=== PATIENT | male | born 1985 | race Caucasian/White ===

== ENCOUNTER → 2018-06-09 | Outpatient (CLI) | payer BC ==
--- NOTE | 2018-06-09 13:39 | US ---
EXAM DESCRIPTION: Liver: ULTRASOUND. CLINICAL HISTORY: ABNORMAL RESULTS OF LIVER FUNCTION STUDIES COMPARISON: None. TECHNIQUE: Transabdominal scannin-dimensional and Doppler modes. FINDINGS: Gallbladder: normal size, shape, echogenicity; no intraluminal stones or sludge. No fluid around the gallbladder. No wall thickening. 2.6 mm. Non-tender with transducer pressure. Common bile duct: caliber 6.1 mm upper normal limits. Liver: Increased echogenicity; contour liver capsule smooth where seen. No fluid around the liver. Intrahepatic biliary ducts normal caliber. Doppler hepatopedal flow portal vein.. Long axis right lobe 14.2 cm. Pancreas: normal size and echogenicity. Duct not seen. Right kidney: long axis measures 11.0 cm. Normal Echogenicity. Normal cortical thickness. No hydronephrosis IMPRESSION: 1. Normal ultrasound gallbladder. Common bile duct upper normal limits. 2. Fatty liver/steatosis. Not enlarged. Normal ducts and vascularity. Smooth capsule. No ascites. Normal ultrasound of the pancreas. 3. Normal ultrasound of the right kidney. Electronically signed by: Rudi Savage MD 06/09/2018 1:38 PM CDT
== END ==
LOC: US 07:46
PROVIDERS: ATTEND Family Medicine
DX: R94.5 Abnormal results of liver function studies (principal); K76.0 Fatty (change of) liver, not elsewhere classified

== ENCOUNTER → 2019-06-21 | Outpatient (CLI) | payer BC | LOC: GMAE 10:18 | PROVIDERS: ATTEND Family Medicine | DX: Z00.00 Encounter for general adult medical examination without abnormal findings (principal); E11.9 Type 2 diabetes mellitus without complications; E78.2 Mixed hyperlipidemia ==

== ENCOUNTER → 2020-06-09 | Outpatient (CLI) | payer OTHER | LOC: YCFC.O 16:59 | PROVIDERS: ATTEND Family Medicine | DX: Z20.828 Contact with and (suspected) exposure to other viral communicable diseases (principal) ==